=== PATIENT | female | born 2000 | race Caucasian/White ===

== ENCOUNTER 2019-10-29 10:47 | Outpatient (CLI) | payer OTHER ==
--- NOTE | 2019-10-29 11:41 | ULT ---
EXAM: OB ultrasound COMPARISON: None HISTORY: female. Evaluate size, dates, and anatomy. TECHNIQUE: Multiplanar grayscale and color Doppler transabdominal sonographic images are obtained. FINDINGS: There is a single intrauterine gestation in breech presentation. Cardiac Doppler demonstrat es heart tones with a heart rate of 156 beats per minute. The placenta is located anteriorly without evidence of placenta previa. There is a normal amount of amniotic fluid with an am niotic fluid index of 13.35 centimeters. The cervical length based on transabdominal imaging measures 3.05 centimeters. biometry measurements: BPD 4.8 cm -- 20 weeks 4 days HC 18.09 cm -- 20 weeks 4 days AC 15.56 cm -- 20 weeks 6 days FL 3.31 cm -- 20 weeks 3 days The estimated gestational age by ultrasound is 20 weeks 5 days with an AMNA on03/12/2020. Gestational a ge by the last menstrual period is 20 weeks 3 days. The estimated weight by ultrasound is 361 g (13 ounces). This represents 52 percentile for feta l weight. There is suggestion of a 4 chambered heart. The cerebellum, visualized portions of the spine, k idneys, urinary bladder, and cord insertion demonstrate a normal sonographic appearance. A three-vessel cord is not visualized, but there is flow on either side of the urinary bladder sugges ting a three-vessel cord.. No anomalies are seen. IMPRESSION: 1. Single intrauterine gestation in breech presentation with heart tones documented. Estimated gestational age by ultrasound is 20 weeks 5 days. 2. Estimated weight is 361 g (13 ounces). 3. Amniotic fluid index is 13.35 centimeters.
== END 2019-10-29 10:48 | disposition home or self-care (01) ==
LOC: BICULT 10:47
PROVIDERS: ATTEND Family Medicine
DX: O32.1XX0 Maternal care for breech presentation, not applicable or unspecified (principal); Z3A.20 20 weeks gestation of pregnancy
CPT/HCPCS: 76805

== ENCOUNTER 2020-03-13 08:09 | Outpatient (CLI) | payer OTHER ==
[2020-03-13 17:47] LABS: SARS-CoV-2 MS2 Positive; SARS-CoV-2 N Gene Negative; SARS-CoV-2 S Gene Negative; SARS-CoV-2 by NAA Not Detected (NotDetected); SARS-CoV-2 orf1ab Negative
== END 2020-03-13 08:10 | disposition home or self-care (01) ==
LOC: LABBT 08:09
PROVIDERS: ATTEND Family Medicine
DX: Z20.828 Contact with and (suspected) exposure to other viral communicable diseases (principal)
CPT/HCPCS: 87635; U0003